=== PATIENT | female | born 1970 | race African-American/Black ===

== ENCOUNTER 2021-06-21 04:14 | Day surgery (SDC) | payer OTHER ==
[2021-06-18 17:45] VITALS: BMI 34.3
[2021-06-21] MEDS ORDERED: PROPOFOL 20 ML ONE ×2 (09:58)
[2021-06-21] MEDS ORDERED: SUCCINYLCHOLINE CHLORIDE 200 MG/10 ML SYRINGE ONE (09:58)
[2021-06-21] MEDS ORDERED: MIDAZOLAM HCL 2 MG/2 ML SINGLE DOSE VIAL ONE (09:59)
[2021-06-21] MEDS ORDERED: KETOROLAC TROMETHAMINE 30 MG/1 ML VIAL ONE (10:13)
[2021-06-21] MEDS ORDERED: ONDANSETRON 4 MG/2 ML VIAL ONE (10:13)
[2021-06-21] MEDS ORDERED: DEXAMETHASONE SOD PHOSPHATE 4 MG/1 ML VIAL ONE (10:13)
[2021-06-21] MEDS ORDERED: oxyCODONE HCL 5 MG TABLET PO PRN (10:57)
[2021-06-21] MEDS ORDERED: ONDANSETRON 4 MG/2 ML VIAL IVPUSH PRN (10:57)
[2021-06-21] MEDS ORDERED: LACTATED RINGERS SOLUTION 1,000 ML IV SCH (11:00)
[2021-06-21] MEDS ORDERED: ACETAMINOPHEN 325 MG TABLET (FP) PO PRN (11:20)
[2021-06-21] MEDS ORDERED: IBUPROFEN 400 MG TABLET (FP) PO PRN (11:20)
[2021-06-21 15:18] VITALS: BP 120/78; PULSE 60; TEMP 97.8
== END 2021-06-21 15:18 | disposition home or self-care (01) ==
LOC: JASU-SURG 04:14
PROVIDERS: ATTEND Obstetrics & Gynecology
PROC: 0UDB8ZX Extraction of Endometrium, Via Natural or Artificial Opening Endoscopic, Diagnostic (ICD-10-PCS; principal; 2021-06-21 10:00)
DX: N93.9 Abnormal uterine and vaginal bleeding, unspecified (principal); D25.9 Leiomyoma of uterus, unspecified
CPT/HCPCS: 88305-TC; 94760